=== PATIENT | female | born 1950 | race Caucasian/White ===

== ENCOUNTER 2019-03-17 15:53 | Emergency (ER) | payer MEDICARE ==
--- NOTE | 2019-03-17 17:04 | ED ---
Lower Extremity - HPI Summary HPI Summary: This patient is a 68-year-old otherwise healthy female presenting to the ED with left lateral foot pain erythema and swelling times approximate 4 days. She denies any trauma, however states while at yoga a few days ago, she fell from a pose and landed on her left side. She denies any other pain other than her left lateral foot. She states she did not have pain to this area immediately following the fall. She also flexes and extends the foot on a "pump " for work and has been working more frequently. Denies f/s/c. Denies any pain to the lower extremity or knee otherwise. - History of Current Complaint Chief Complaint: EDExtremityLower Stated Complaint: LT FOOT INJURY PER PT Time Seen by Provider: 03/17/19 16:02 Hx Obtained From: Patient Mechanism Of Injury: Unknown Onset of Pain: Immediate Onset/Duration: Hours Severity Initially: Moderate Severity Currently: Moderate Pain Intensity: 5 Pain Scale Used: 0-10 Numeric Location: Is Discrete @ - left lateral foot pain Character Of Pain: Aching Associated Signs And Symptoms: Positive: Swelling, Redness Aggravating Factor(s): Standing, Ambulation Alleviating Factor(s): Rest Able to Bear Weight: No - Risk Factors Gout Risk Factors: Negative DVT Risk Factors: Negative Septic Arthritis Risk Factor: Negative - Allergies/Home Medications Allergies/Adverse Reactions: Allergies Allergy/AdvReac Type Severity Reaction Status Date / Time MS Sulfites [Sulfites] Allergy Anaphylatic Verified 11/22/15 07:39 Shock PMH/Surg Hx/FS Hx/Imm Hx Previously Healthy: Yes Endocrine/Hematology History: Denies: Hx Diabetes Cardiovascular History: Denies: Hx Hypertension, Hx Pacemaker/ICD Respiratory History: Denies: Hx Asthma History: Denies: Hx Renal Disease Sensory History: Denies: Hx Hearing Aid Psychiatric History: Denies: Hx Panic Disorder - Surgical History Surgery Procedure, Year, and Place: D&C - Immunization History Hx Pertussis Vaccination: No Immunizations Up to Date: Yes Infectious Disease History: No Infectious Disease History: Denies: Traveled Outside the [place] in Last 30 Days - Social History Occupation: Employed Full-time Lives: With Family Alcohol Use: Rare Alcohol Amount: 1 Hx Substance Use: No Substance Use Type: Reports: None Hx Tobacco Use: Yes Smoking Status (MU): Never Smoked Tobacco Have You Smoked in the Last Year: No Review of Systems Constitutional: Negative Negative: Fever, Chills, Fatigue, Skin Diaphoresis Negative: Palpitations, Chest Pain Negative: Shortness Of Breath, Cough Genitourinary: Negative Positive: no symptoms reported, see HPI Positive: Arthralgia - left lateral and dorsal foot pain with erythema Negative: Rash, Bruising Neurological: Negative All Other Systems Reviewed And Are Negative: Yes Physical Exam Triage Information Reviewed: Yes Vital Signs On Initial Exam: Initial Vitals Temp Pulse Resp BP Pulse Ox 98.6 F 78 16 153/90 98 03/17/19 15:57 03/17/19 15:57 03/17/19 15:57 03/17/19 15:57 03/17/19 15:57 Vital Signs Reviewed: Yes Appearance: Positive: Well-Appearing, Well-Nourished Skin: Positive: Skin Color Reflects Adequate Perfusion, Other - left lateral and dorsal foot pain with erythema Head/Face: Positive: Normal Head/Face Inspection Eyes: Positive: EOMI Neck: Positive: Supple, No Lymphadenopathy Respiratory/Lung Sounds: Positive: Clear to Auscultation, Breath Sounds Present Cardiovascular: Positive: RRR, Pulses are Symmetrical in both Upper and Lower Extremities Musculoskeletal: Positive: Pain @ - left lateral and dorsal foot pain with erythema Neurological: Positive: Speech Normal Psychiatric: Positive: Affect/Mood Appropriate AVPU Assessment: Alert Procedures - Sedation Patient Received Moderate/Deep Sedation with Procedure: No Diagnostics - Vital Signs Vital Signs Temp Pulse Resp BP Pulse Ox 03/17/19 15:57 98.6 F 78 16 153/90 98 - Laboratory Lab Statement: Any lab studies that have been ordered have been reviewed, and results considered in the medical decision making process. Lower Extremity Course/Dx - Course Course Of Treatment: This patient is evaluated for left lateral foot pain to the dorsum of the foot with erythema and small amount of swelling. She remained T Allyson, however flexion and extension worsens her symptoms. She denies any ankle pain. Pulses +2 intact bilaterally. There is a small amount of erythema to the lateral portion of the foot as well as the dorsum of the foot with pain on palpation, flexion and extension. She states she has been overusing the foot at work on a "pop." She has not taken any ibuprofen or used ice for relief. X-ray obtained which shows no acute osseous injury. She will be diagnosed with tendinitis to the area and is encouraged ibuprofen and ice. - Diagnoses Differential Diagnosis/HQI/PQRI: Positive: Fracture (Closed), Sprain - history is also, Strain, Tendonitis, Other - stress fracture Provider Diagnoses: Tendinitis Discharge ED - Sign-Out/Discharge Documenting (check all that apply): Patient Departure - Discharge Plan Condition: Stable Disposition: HOME Patient Education Materials: Tendinitis (ED) Referrals: Marilyn Sheppard MD [Primary Care Provider] - Additional Instructions: Ibuprofen 600mg three times daily Elevate Ice - Billing Disposition and Condition Condition: STABLE Disposition: Home - Attestation Statements Provider Attestation: I was available for consult. This patient was seen by the KELLY. The patient was not presented to, seen by, or examined by me. Harshad Rahman MD
[2019-03-17 18:10] VITALS: BP 115/61
== END 2019-03-17 18:08 | disposition home or self-care (01) ==
LOC: ED 15:53
DX: M77.9 Enthesopathy, unspecified (principal); Z88.2 Allergy status to sulfonamides
CPT/HCPCS: 99282